=== PATIENT | female | born 1985 | race Caucasian/White ===

== ENCOUNTER 2025-05-26 08:21 | Outpatient (AMB) | payer OTHER, SELFPAY ==
--- NOTE | 2025-05-26 08:24 | A.OFFPC_ITS ---
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 Functional Manager Required: No Is last menstrual period known: No (depo) Post menopausal: No Patient : No Allergies No Known Allergies Allergy (Verified 05/26/25 09:01) Medication List - Last Reconciled 05/26/25 by Aisha Miranda CNP medroxyprogesterone 150 mg IM Q12W Tobacco use date assessed: 05/26/25 Dental Screening Dental Screen Date: 05/26/25 Did you have a dental visit in the last 12 months?: Yes Did you have a dental problem in the last 6 months where you did not have access to dental care?: No Was dental information given to patient?: Patient has dentist HPI HPI Comments History of Present Illness Details 39-year-old female presents to establish care. She is on medroxyprogesterone 150 mg IM every 12 weeks. [facility] Last office visit/CPE/labs - 01/14/2013 Acute issue(s) - None Past Medical History - None Surgical History - None Family History - Mom: DM Social History - Nonsmoker. Does not vape. Drinks 3 mix ed drinks occasionally. Denies recreational drug use - Has been making healthy dietary choice s. Exercises routinely. Generally sleep well Health maintenance - Last eye exam was several years ago. R eferred to Ophthalmology for routine eye exam - Last dental visit was was 2 weeks ago - Last Tdap was in 05/14/2009 - Has not been vaccinated for the flu season; declines vaccination - [facility]im[facility]uel [facility]: Negative. Record not available - Last mammogram was 04/2025 with parimutuel ticket checker: Normal. Record not available Specialists - [facility] parimutuel ticket checker PFSH Family History (Updated 05/26/25 @ 08:46 by MARIA TERESA Raygoza) Mother Diabetes Social History (Reviewed 05/26/25 @ 08:46 by BORIS Raygoza Housing: House Patient Tobacco Use Status: Never used Tobacco e-Cigarette/Vaping Use: Never Used Second Hand Smoke Exposure: No service: No Current occupational status: employed Current occupation: special high school combination teacher Current occupational exposures/hazards: No Cognitive needs: No Hearing needs: No Vision needs: No Questionnaire PHQ-9 Over the last 2 weeks, how often have you been bothered by any of the following problems? 1. Little interest or pleasure in doing things: not at all 2. Feeling down, depressed, or hopeless: not at all 3. Trouble falling or staying asleep, or sleeping too much: several days 4. Feeling tired or having little energy: several days 5. Poor appetite or overeating: not at all 6. Feeling bad about yourself - or that you are a failure or have let yourself or your family down: not at all 7. Trouble concentrating on things, such as reading the newspaper or watching television: not at all 8. Moving or speaking so slowly that other people could have noticed. Or the opposite - being so fidgety or restless that you have been moving around a lot more than usual: not at all 9. Thoughts that you would be better off or of hurting yourself in some way: not at all Total score: 2 Depression Screening Interpretation: Negative Depression Screening Done: Yes 41418 - PHQ-9 Billing: Yes Source: Developed by Drs. Pablo Muñiz, Miroslava Keenan, Atilio Dumont and colleagues, with an educational monie from [employer]. Thrive Questionnaire Date Thrive assessed: 05/26/25 I am a: Patient What is your living situation today?: I have a steady place to live Within the past 12 months, did the food you bought not last and you didn't have the money to get more?: Never true Within the past 12 months, did you worry whether your food would run out before you got money to buy more?: Never true Do you have trouble paying for medicines?: No Do you have trouble getting transportation to medical appointments?: No Do you have trouble paying your heating and electricity bill?: No Do you have trouble taking care of your child, family member or friend?: No Do you have trouble with day-to-day activities such as bathing, preparing meals, shopping, managing finances, etc.?: No Are you currently unemployed and looking for a job?: No Are you interested in more education?: No Please select the resources that you would like help with: None Currently or been in a relationship where the following occur: No concerns reported THRIVE Score: 0 AUDIT C Alcohol Use Questionnaire (AUDIT-C) 1. How often do you have a drink containing alcohol?: Monthly or less 2. How many drinks containing alcohol do you have on a typical day when you are drinking?: 1 or 2 3. How often do you have six or more drinks on one occasion?: Never Total Score: 1 Score Reviewed/Action Taken: Yes CHRISTEN-7 AMB Questionnaire CHRISTEN-7 Date CHRISTEN - 7 assessed: 05/26/25 Feeling nervous, anxious, or on edge: 0 = Not at all Not being able to stop or control worryin = Not at all Worrying too much about different things: 1 = Several days Trouble relaxin = Not at all Being so restless that it is hard to sit still: 0 = Not at all Becoming easily annoyed or irritable: 0 = Not at all Feeling afraid as if something awful might happen: 0 = Not at all Total CHRISTEN-7 score (0-4 normal; 5-9 mild; 10-14 moderate; 15-21 severe): 1 Source: Developed by Drs. Pablo Muñiz, Miroslava Keenan, tAilio Dumont and colleagues, with an educational monie from [employer]. CHRISTEN-7 Assessment Billing CHRISTEN-7 Assessment Tool: CHRISTEN-7 Assessment 47185 Review of Systems Const Details: Denies chills, Denies fatigue, Denies fever(s), Denies headache(s) and Denies weakness HEENT Denies change in vision, Denies dizziness, Denies headache(s), Denies hearing loss, Denies nasal congestion, Denies sinus pain, Denies sinus pressure and Denies sore throat Card Denies chest pain, Denies lightheadedness, Denies dyspnea and Denies other (palpitations) Resp Denies cough, Denies dyspnea and Denies wheezing GI Denies abdominal pain, Denies melena, Denies hematochezia, Denies change in bowel habits, Denies dyspepsia and Denies nausea Denies hematuria and Denies dysuria Musc Denies abnormal gait, Denies myalgias, Denies arthralgias, Denies numbness and Denies tingling Skin/Breast Denies rash, Denies unusual bruising and Denies wounds Neuro Denies abnormal gait, Denies dizziness, Denies headache(s), Denies memory loss, Denies numbness, Denies Sensory deficit (Neuro), Denies tingling and Denies weakness Psych Denies anxiety, Denies depression and Denies memory loss Endo Denies cold intolerance, Denies fatigue, Denies heat intolerance, Denies polydipsia and Denies polyuria Aj/Lymph Denies easy bleeding and Denies easy bruising Aller/Immun Denies wheezing Physical exam (Primary Care) Vital Signs: Last Vital Signs Temp 98.1 F 05/26/25 08:39 Pulse 95 05/26/25 08:39 Resp 16 05/26/25 08:39 BP 126/74 05/26/25 08:39 Pulse Ox 100 05/26/25 08:39 Oxygen Delivery Method Room Air 05/26/25 08:39 BMI result Body Mass Index 31.0 Tobacco/Smoking Status: Tobacco use Status Tobacco use date assessed 05/26/25 05/26/25 08:39 Patient Tobacco Use Status Never used Tobacco 05/26/25 08:39 e-Cigarette/Vaping Use Never Used 05/26/25 08:39 PHQ-9: PHQ-9 Score PHQ-9: Total score 2 05/26/25 09:30 Depression Screening Interpretation: Negative Thrive Assessment: Date of Thrive Assessment Date Thrive assessed 05/26/25 05/26/25 08:25 Currently or been in a relationship where the following occur: No concerns reported Const Other: General: no acute distress, well developed, alert and awake Nutritional Appearance: well nourished Orientation/consciousness: patient oriented x3 HENMT Head: Yes normocephalic and Yes atraumatic Ears: hearing grossly normal bilaterally and TM's normal bilaterally General nose exam: Normal external nose present and Normal nares present Mouth: Normal oral and palatal mucosa present and moist mucous membranes Teeth and gingiva: dentition normal Throat: Yes oropharynx normal Eyes Pupils: Equal, round and reactive pupils present and Pupil accommodation reflex normal EOM: EOMs intact bilaterally Neck Neck: Yes normal visual inspection, Yes no lymphadenopathy and Yes trachea midline Thyroid: Thyroid normal Carotids: no bruits Lymphatic: no lymphadenopathy noted Chest Chest palpation & inspection: normal inspection of the chest Resp Effort & Inspection: normal respiratory effort Auscultation: clear to auscultation bilaterally Cardio Rate: regular rate Rhythm: regular rhythm Heart sounds: S1 normal heart sound present, S2 normal heart sound present, no gallops, no murmurs and no rubs Bruits: no abdominal aortic bruits and no carotid bruits GI Palpation (GI): No Abdominal aortic bruit present, Soft to palpation, nontender, No hepatosplenomegaly present and No Rebound tenderness present Auscultation: normal bowel sounds General: Yes no CVA tenderness Back/Spine/Pelvis Back: no CVA tenderness Cervical Spine: cervical ROM normal and No Cervical spine tenderness Thoracic/Lumbar Spine: thoraco-lumbar ROM normal, No pain with thoraco-lumbar ROM, No thoracic spinal tenderness and No lumbar spinal tenderness Skin General: warm and dry. Normal skin color. Normal skin turgor Lesions: no lesions Rashes: no rashes Trauma: no lacerations or abrasions Wounds: no wounds Nails: normal Neuro General: patient oriented x3, gait normal and CN's II-XI intact bilaterally Cranial nerves: Yes Equal, round and reactive pupils present Cognition (Neuro): normal cognition Gait exam (Neuro): Normal gait present Motor exam (neuro): 5/5 motor strength present throughout Sensory Exam: No Sensory deficit (Neuro) Deep tendon reflexes (DTR's): Right patellar reflex intensity grade: 2+ and Left patellar reflex intensity grade: 2+ Extrem General: Yes normal to inspection, No edema and No calf tenderness Psych Appearance: grossly normal Affect: normal affect Attitude: cooperative Thought process: Normal thought process present Immunizations Boostrix Tdap 2.5 Lf unit-8 mcg-5 Lf/0.5 mL intramuscular syringe Performing Provider: Aisha Miranda CNP Performing Location: [facility] [place] Administered by: Cj Bueno RN on 05/26/25 09:28 Dose Route Admin Location Dispensed Lot Number Expiration Date [facility] Windows Application Administrator 0.5 mL IM Left Deltoid 0.5 mL [id number] 07/04/27 [id number] Dynamic Signal Total Dispensed Waste 0.5 mL 0 % VIS Given Date VIS Provided VIS Publication Date 05/26/25 Single Vaccine 21 Eligibility Eligibility Date Funding Source Not [facility] Eligible 05/26/25 Private Coding Level of Care Code New Pt Prev Care 40-64y(18343) Diagnoses Normal physical examination, routine Z00.00 Eye exam, routine Z01. Laboratory tests ordered as part of a complete physical exam (CPE) Z00. Additional Codes CHRISTEN-7 Assessment Billing - CHRISTEN-7 Assessment Tool: CHRISTEN-7 Assessment 28031 ([id number]) PHQ-9 - 91876 - PHQ-9 Billing: Yes ([id number]) Assessment & Plan Assessment & Plan (1) Normal physical examination, routine: Code(s): Z00.00 - Encounter for general adult medical examination without abnormal findings Category: Medical Plan: No significant functional limitation noted. Healthy diet and routine exercise encouraged. Perform lab work and follow-up for an extended physical exam in 2-4 weeks. Return sooner with symptoms or concerns. Verbalized understanding and agreed with the plan. (2) Eye exam, routine: Code(s): Z01.00 - Encounter for examination of eyes and vision without abnormal findings Category: Medical Plan: Last eye exam was several years ago. Referred to Ophthalmology for routine eye exam. (3) Laboratory tests ordered as part of a complete physical exam (CPE): Code(s): Z00.00 - Encounter for general adult medical examination without abnormal findings Category: Medical Plan: Fasting labs ordered as part of a complete physical exam. Advised to fast for at least 10 hours before getting labs drawn. May drink water Verbalized understanding and agreed with treatment plan. Orders: Orders Complete Blood Count Auto Diff Today Z00.00 - Encounter for general adult medical examination without abnormal findings Comprehensive [place]. Panel Fast Today Z00.00 - Encounter for general adult medical examination without abnormal findings Lipid Panel Today Z00.00 - Encounter for general adult medical examination without abnormal findings UA CC w/rflx Micro + Cult Today Z00.00 - Encounter for general adult medical examination without abnormal findings TDaP Immunization Today Z23 - Encounter for immunization Microalbumin, Random (w Creat) Today Z00.00 - Encounter for general adult medical examination without abnormal findings TSH reflex Free T4 Today Z00.00 - Encounter for general adult medical examination without abnormal findings Vitamin D 25-OH Total Today Z00.00 - Encounter for general adult medical examination without abnormal findings Referrals Ophthalmology Referral Z01.00 - Encounter for examination of eyes and vision without abnormal findings
[2025-05-26 08:39] VITALS: BP 126/74; PULSE 95; RESP 16; TEMP 36.7; O2SAT 100; BMI 31.0
== END 2025-05-26 09:27 | disposition home or self-care (01) ==
LOC: HO.HMCFM 08:21
PROVIDERS: PCP Nurse Practitioner Family; Visit Provider Nurse Practitioner Family
DX: Z00.00 Encounter for general adult medical examination without abnormal findings (principal); Z01.00 Encounter for examination of eyes and vision without abnormal findings; Z23 Encounter for immunization

== ENCOUNTER → 2025-05-26 08:21 | Outpatient (BNVA) | payer OTHER, SELFPAY | PROVIDERS: PCP Nurse Practitioner Family; Visit Provider Nurse Practitioner Family | DX: Z00.00 Encounter for general adult medical examination without abnormal findings (principal); Z23 Encounter for immunization | CPT/HCPCS: 90471; 90715; 96127 ==

== ENCOUNTER 2025-06-05 07:17 | Outpatient (REF) | payer OTHER, SELFPAY ==
--- OUTSIDE RECORDS SUMMARY | 2025-06-05 07:22 | XMS_ITS | Data Portability ---
Author Organization [facility], [facility] Address [address] [place] [phone] Assessment No assessment recorded. Plan of Treatment Reminders Order Date Submit Date Provider Last Modified By Organization Details Last Modified Time Details Appointments None record ed. Lab None record ed. Referral None record ed. Procedures None record ed. Surgeries None record ed. Imaging None record ed. Medication Orders None record ed. Patient TargetsNo targets recorded. Patient InstructionsNo instructions recorded. Reason for Referral None Reported. Problems Name Problem SNOMED Code Status Onset Date Resolution Date Notes Provider Name and Address Organization Details Recorded Time Influenza with respiratory manifestation other than pneumonia Active 2007 Not Available [facility] 3 03:01:07 Problem Notes None recorded. Medical Equipment None Reported. Vitals None Recorded Social History None recorded. Functional Status None recorded. Mental Status None recorded. Family History Nothing Reported. Medical History No medical history recorded. Gynecological HistoryNo gynecological history recorded. Obstetrics History GPAL:G 0 P 0 0 0 0 Past Encounters Encounter ID Performer Location Encounter Start Date Encounter Closed Date Diagnosis/Indication Diagnosis SNOMED-CT Code Diagnosis ICD10 Code Diagnosis IMO Codes Diagnosis Note [id number] Rachell Sterling MD [address] [phone] 09/01/2007 10:28:46 09/01/2007 11:00:15 Health Concerns Section Related Observation LastModified by Organization Detai ls LastModified Time None Recorded Concern Status LastModified by Organization Details LastModified Time None Recorded Advance Directives Directive None Recorded Payers Insurance Date Sequence Insurance Name Policy Number Policy Cancino Covered Member ID Cancino Member ID Guarantor Name 01/26/2021 1 [facility] - HE[facility] NET PLAN (MEDICAID HMO) Rahel Harper [id number] Abigail Harper 01/26/2021 2 [place] [facility] Wilfrid Harper [id number] Abigail Harper 03/22/2014 1 [facility] [id number] Abigail Harper [id number] Abigail Harper OBGyn Episode No OBEpisode recorded.
[2025-06-05 10:59] LABS: MANUAL DIFF FLAG NO
[2025-06-05 11:01] LABS: Appearance Urine Clear; Glucose Urine UA Negative (Negative); PH 6.0 (5.0-9.0); Specific Gravity - Urine 1.025 (1.005-1.025)
[2025-06-05 11:10] LABS: Hematocrit 45.1 % (37.0-47.0); Hemoglobin 14.2 g/dl (12.0-16.0); Imm Gran Abs Auto 0.01 X10*3/uL (0.00-0.03); Imm Gran Pct Auto 0.2 % (0.0-0.4); Lymphocytes Absolute Auto 1.6 X10*3/uL (1.2-4.9); Mean Corpuscular HGB Conc 31.5 g/dl (31.0-35.0); Mean Corpuscular Hemoglobin 28.3 pg (27.0-33.0); Mean Corpuscular Volume 90.0 fL (80.0-98.0); NRBC Abs Auto 0.000 X10*3/uL (0.0-0.012); NRBC Pct Auto 0.0 /100WBC (0.0-0.2); Platelet Count 222 X10*3/uL (160-400); Red Blood Count 5.01 X10*6/uL (4.20-5.50); White Blood Count 5.2 X10*3/uL (4.8-10.8)
[2025-06-05 11:37] LABS: Alanine Aminotransferase 15 U/L (0-31); Albumin Level 4.2 g/dL (3.5-5.0); Alkaline Phosphatase 39 U/L (39-117); Anion Gap 9 (12-20); Aspartate Amino Transferase 20 U/L (5-31); Blood Urea Nitrogen 19 mg/dL (9-16); Calcium 8.6 mg/dL (8.4-10.2); Carbon Dioxide 27 mmol/L (22-29); Chloride 110 mmol/L (96-108); Cholesterol 203 mg/dL (<200); Estimated Glomerular Filt Rate > 60; HDL Cholesterol 67 mg/dL (>40); Potassium 4.3 mmol/L (3.3-5.1); Sodium 142 mmol/L (135-145); Total Protein 6.6 g/dL (6.5-8.0); Triglycerides 40 mg/dL (<150)
== END 2025-06-05 07:18 | disposition home or self-care (01) ==
LOC: HO.HMGCLDS 07:17
PROVIDERS: PCP Nurse Practitioner Family; Visit Provider Nurse Practitioner Family
DX: Z00.00 Encounter for general adult medical examination without abnormal findings (principal); Z13.6 Encounter for screening for cardiovascular disorders; Z13.29 Encounter for screening for other suspected endocrine disorder; Z13.0 Encounter for screening for diseases of the blood and blood-forming organs and certain disorders involving the immune mechanism
CPT/HCPCS: 36415; 80053; 80061; 81003; 82043; 82306; 82570; 84443; 85025

== ENCOUNTER 2025-06-16 15:16 | Outpatient (AMB) | payer OTHER, SELFPAY ==
--- NOTE | 2025-06-16 15:00 | A.OFFPC_ITS ---
Intake Visit Reasons: 2-4 wks labs review Intake Note: patient here for 2-4 wks Telehealth for labs review Film Process Operator Required: No Is last menstrual period known: No Post menopausal: No Patient : No Allergies No Known Allergies Allergy (Verified 06/16/25 15:01) Tobacco use date assessed: 06/16/25 Dental Screening Dental Screen Date: 06/16/25 Did you have a dental visit in the last 12 months?: Yes Did you have a dental problem in the last 6 months where you did not have access to dental care?: No Was dental information given to patient?: Patient has dentist HPI HPI Comments History of Present Illness Details 40-year-old female presents for a telehe alth visit for review of recent lab results. She notes that she has been maintaining a healthy lifestyle. No acute symptoms at this time. 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 Current occupational exposures/hazards: No Cognitive needs: No Hearing needs: No Vision needs: No Questionnaire Thrive Questionnaire Date Thrive assessed: 05/22/25 I am a: Patient What is your living situation today?: I have a steady place to live Within the past 12 months, did the food you bought not last and you didn't have the money to get more?: Never true Within the past 12 months, did you worry whether your food would run out before you got money to buy more?: Never true Do you have trouble paying for medicines?: No Do you have trouble getting transportation to medical appointments?: No Do you have trouble paying your heating and electricity bill?: No Do you have trouble taking care of your child, family member or friend?: No Do you have trouble with day-to-day activities such as bathing, preparing meals, shopping, managing finances, etc.?: No Are you currently unemployed and looking for a job?: No Are you interested in more education?: No Please select the resources that you would like help with: None Currently or been in a relationship where the following occur: No concerns reported THRIVE Score: 0 CHRISTEN-7 AMB Questionnaire CHRISTEN-7 Date CHRISTEN - 7 assessed: 05/26/25 Source: Developed by Drs. Pablo Muñiz, Miroslava Keenan, Atilio Dumont and colleagues, with an educational monie from [employer]. Review of Systems Const Details: Denies chills, Denies fatigue, Denies fever(s), Denies headache(s) and Denies weakness Cardiac Denies chest pain, Denies claudication, Denies leg edema, Denies lightheadedness, Denies palpitations, Denies dyspnea, Denies dyspnea on exertion, Denies orthopnea and Denies other (Loss of consciousness) Resp Denies cough, Denies excessive phlegm production, Denies dyspnea, Denies dyspnea on exertion, Denies snoring and Denies wheezing Physical exam (Primary Care) Tobacco/Smoking Status: Tobacco use Status Tobacco use date assessed 06/16/25 06/16/25 15:02 Patient Tobacco Use Status Never used Tobacco 06/16/25 15:02 e-Cigarette/Vaping Use Never Used 06/16/25 15:02 Thrive Assessment: Date of Thrive Assessment Date Thrive assessed 05/22/25 06/16/25 15:02 Currently or been in a relationship where the following occur: No concerns reported Const Other: Patient is alert and oriented x3 Telehealth Telehealth Telehealth Platform: Telephone Location of provider rendering services: practice address Location of patient: address on file Patient Identification confirmed using: Name, : Yes Telehealth method: voice only Patient verbally consented to treatment: Yes Patient verbally consented to billing insurance company: Yes Patient informed of any privacy concerns related to visit: Yes Coding Level of Care Code Tele Est Pt Level 3 (00836) Diagnoses Hypercholesterolemia E78.00 Time Spent (min) 10 Assessment & Plan Assessment & Plan (1) Hypercholesterolemia: Code(s): E78.00 - Pure hypercholesterolemia, unspecified Category: Medical Plan: Recent total cholesterol and LDL levels slightly elevated, 203 and 128 respectively. Advised to limit foods high in saturated fat and avoid foods high in trans fat. Routine exercise encouraged. Fast for 10-12 hours may drink water, and perform lipid panel blood work a few days before next visit. Follow-up for transfer of care and hypercholesterolemia with a new provider in 2 months. Return sooner with symptoms or concerns. Verbalized understanding and agreed with the plan. Orders: Orders Lipid Panel 2 Months E78.00 - Pure hypercholesterolemia, unspecified
--- OUTSIDE RECORDS SUMMARY | 2025-06-16 17:23 | XMS_ITS | Data Portability ---
Author Organization [facility] Address [address] [place] [phone] Assessment No assessment recorded. Plan of Treatment [...] other than pneumonia Active 2007 Not Available [facility] 3 03:01:07 Problem Notes None recorded. Medical [...] ICD10 Code Diagnosis IMO Codes Diagnosis Note [id number] Rachell Sterling MD [address] [phone] 09/01/2007 10:28:46 09/01/2007 11:00:15 Health Concerns Section Related Observation LastModified by Organization Detai ls LastModified Time None Recorded Concern Status LastModified by Organization Details LastModified Time None Recorded Advance Directives Directive None Recorded Payers Insurance Date Sequence Insurance Name Policy Number Policy Cancino Covered Member ID Cancino Member ID Guarantor Name 01/26/2021 1 [facility] - HEALTH NET PLAN (MEDICAID HMO) Rahel Harper [id number] Abigail Harper 01/26/2021 2 [place] [facility] Wilfrid Harper [id number] Abigail Haprer 03/22/[address] [facility] [id number] Abigail Harper [id number] Abigail Harper OBGyn Episode No OBEpisode recorded.
--- OUTSIDE RECORDS SUMMARY | 2025-06-16 17:23 | XMS_ITS | Clinical Summary ---
Author Organization [facility] Address [address] [place] [phone] Phone Care Team Providers Care Ed Educational Aide Name Role Phone Tracey Phelan MD Primary Care Provider + Encounters Date Type Department Care Team Description 04/12/2025 7:06 AM EDT - 04/12/2025 11:59 PM EDT Hospital [facility] [address] [phone] Encounter for screening mammogram for malignant neoplasm of breast Discharge Disposition: Home or Self Care from Last 3 Months Social History Tobacco Use Types Packs/Day Years Used Date Smoking Tobacco: Never Assessed Comments No Sex and Gender Information Value Date Recorded Sex Assigned at Not on file Legal Sex Female 4:43 PM EST Gender Identity Not on file Sexual Orientation Not on file Obstetrics History Para Term AB IAB SAB Ectopic Multiple Livin g Live Births 1 Last Filed Vital Signs Vital Sign Reading Time Taken Comments Blood Pressure - - Pulse - - Temperature - - Respiratory Rate - - Oxygen Saturation - - Inhaled Oxygen Concentration - - Weight 82.6 kg (182 lb) 04/12/2025 7:13 AM EDT Height 165.1 cm (5' 5 ) 04/12/2025 7:13 AM EDT Body Mass Index 30.29 04/12/2025 7:13 AM EDT Plan of Treatment Health Maintenance Due Date Last Done Comments DTaP,Tdap,and Td Vaccines (1 - Tdap) 2003 Hepatitis B Vaccines (1 of 3 - 19+ 3-dose series) 2003 Cervical Cancer Screening: P ap Smear 2005 HPV Vaccines (1 - 3-dose SCD M series) 2011 Depression Screening 08/07/2024 HIV Screening 03/19/2025 Hepatitis C Screening 03/19/2025 Social Influencers of Health Screening 03/19/2025 COVID-19 Vaccine (3 - 2024-2 6 season) 2025 07/28/2021, 07/07/2021 Influenza Vaccine (#1) 2025 Breast Cancer Screening 04/12/2027 04/12/2025 RSV Immunization Adult Patients (1 - 1-dose 75+ series) 2059 HIB Vaccines Aged Out No longer eligi ble based on patient's age to complete this topic Hepatitis A Vaccines Aged Out No long er eligible based on patient's age to complete this topic IPV Vaccines Aged Out No longer eligi ble based on patient's age to complete this topic MMR Vaccines Aged Out No longer eligi ble based on patient's age to complete this topic Meningococcal ACWY Vaccine Aged Out N o longer eligible based on patient's age to complete this topic Meningococcal B Vaccine Aged Out No l onger eligible based on patient's age to complete this topic Pneumococcal Vaccine: Pediatrics (0 to 5 Years) and At-Risk Patients (6 to 49 Years) Aged Out No longer eligible b ased on patient's age to complete this topic RSV Immunization Patients Under 20 months Aged Out No longer eligible b ased on patient's age to complete this topic Varicella Vaccines Aged Out No longer eligible based on patient's age to complete this topic Procedures Procedure Name Priority Date/Time Associated Diagnosis Comments MG MAMMO DIGITAL SCREENING W KEVIN BILAT Routine 04/12/2025 7:23 AM EDT Encounter for screening mammogram for malignant neoplasm of breast from Last 3 Months Results * MG Mammo Digital Screening w Kevin bilat (04/12/2025 7:23 AM EDT) Anatomical Region Laterality Modality Breast Bilateral Mammography 04/13/2025 3:29 PM EDT Impressions 04/13/2025 3:38 PM EDT Benign. BI-RADS CATEGORY: 1 - NEGATIVE RECOMMENDATION: Screening bilateral mammogram is recommended in 1 year. Mammo Location: [facility], [address] [place] [address], [id number], . -------- FINAL REPORT -------- Dictated By: Brian Newton Dictated Date: 04/13/2025 15:29 ET Assigned Physician: Brian Newton Reviewed and Electronically Signed By: rBian Newton Signed Date: 04/13/2025 15:38 ET Workstation ID: [id number] Transcribed By: Self Edit Transcribed Date: 04/13/2025 15:29 ET Narrative 04/13/2025 3:38 PM EDT CLINICAL: 39 years old, Female, routine annual exam. COMPARISON: None. TECHNIQUE: Bilateral MLO and CC views were obtained digitally with 3-D mammogram (digital breast tomosynthesis). Computer-aided detection was utilized in evaluation of this exam (CAD). FINDINGS: There is no evidence of suspicious mass or architectural distortion. No worrisome calcifications are evident. There has been no significant change from prior exam(s). BREAST DENSITY: C - The breasts are heterogeneously dense which may obscure small masses. Procedure Note Brian Newton MD - 04/13/2025 CLINICAL: 39 years old, Female, routine annual exam. COMPARISON: None. TECHNIQUE: Bilateral MLO and CC views were obtained digitally with 3-Dmammogram (digital breast tomosynthesis). Computer-aided detection wasutilized in evaluation of this exam (CAD). FINDINGS: There is no evidence of suspicious mass or architectural distortion. Noworrisome calcifications are evident. There has been no significantchange from prior exam(s). BREAST DENSITY: C - The breasts are heterogeneously dense which mayobscure small masses. IMPRESSION: Benign. BI-RADS CATEGORY: 1 - NEGATIVE RECOMMENDATION: Screening bilateral mammogram is recommended in 1 year. Mammo Location: [facility], [address] [place] [address], [id number], . -------- FINAL REPORT -------- Dictated By: Brian Newton Dictated Date: 04/13/2025 15:29 ET Assigned Physician: Brian Newton Reviewed and Electronically Signed By: Brian Newton Signed Date: 04/13/2025 15:38 ET Workstation ID: [id number] Transcribed By: Self Edit Transcribed Date: 04/13/2025 15:29 ET Tracey Phelan MD IMG BI PROCEDURES Final Result from Last 3 Months Insurance [employer] Care Teams Ed Educational Aide Relationship Specialty Start Date End Date Tracey Phelan MD [address] [place] [phone] PCP - General Obstetrics and Gynecology 04/11/25
== END 2025-06-16 15:32 | disposition home or self-care (01) ==
LOC: HO.HMCFM 15:16
PROVIDERS: PCP Nurse Practitioner Family; Visit Provider Nurse Practitioner Family
DX: E78.00 Pure hypercholesterolemia, unspecified (principal)